=== PATIENT | male | born 1995 | race Two or more races ===

== ENCOUNTER 2017-08-24 10:38 | Outpatient (CLI) | payer OTHER | END 2017-08-24 10:51 | disposition home or self-care (01) | LOC: RAD 10:38 | DX: R07.0 Pain in throat (principal); J30.9 Allergic rhinitis, unspecified; E66.8 Other obesity; Z13.220 Encounter for screening for lipoid disorders; Z11.3 Encounter for screening for infections with a predominantly sexual mode of transmission; J03.80 Acute tonsillitis due to other specified organisms ==

== ENCOUNTER 2017-10-01 13:58 | Outpatient (CLI) | payer OTHER | END 2017-10-01 14:00 | disposition home or self-care (01) | LOC: RAD 13:58 | DX: M25.572 Pain in left ankle and joints of left foot (principal); J32.8 Other chronic sinusitis; R07.0 Pain in throat ==

== ENCOUNTER 2023-05-24 17:22 | Emergency (ER) | payer OTHER ==
[~2023-05-24] VITALS: Ht 180.3 cm; Wt 118.8 kg
== END 2023-05-24 22:59 | disposition home or self-care (01) ==
LOC: ER 17:22
DX: J06.9 Acute upper respiratory infection, unspecified (principal); Z20.822 Contact with and (suspected) exposure to COVID-19

== ENCOUNTER 2024-01-28 14:19 | Emergency (ER) | payer OTHER ==
[~2024-01-28] VITALS: Ht 177.8 cm; Wt 117.9 kg
[2024-01-28] MEDS ORDERED: BUTALB/ACETAMINOPHEN/CAFFEINE 1 TAB TABLET PO ONE (16:00)
[2024-01-28 17:01] LABS: HEMATOCRIT 40.9 % (39.0-48.0); HEMOGLOBIN 13.9 g/dL (13-16.00); MEAN CELL VOLUME 86.4 fL (80.0-100.00); MEAN CORPUSCULAR HEMOGLOBIN 29.4 pg (27.00-32.0); MEAN CORPUSCULAR HGB CONC 34.1 g/dl (32.0-36.0); PLATELET COUNT 273 K/uL (150-450); RED BLOOD COUNT 4.73 M/uL (4.00-6.00); RED CELL DISTRIBUTION WIDTH 13.7 % (11.5-14.5)
[2024-01-28] MEDS ORDERED: BUTALBIT-ACETA1 EACH PO (19:26)
== END 2024-01-28 20:45 | disposition home or self-care (01) ==
LOC: ER 14:22
PROVIDERS: General Practice
DX: R51.9 Headache, unspecified (principal); R05.9 Cough, unspecified; Z20.822 Contact with and (suspected) exposure to COVID-19

== ENCOUNTER 2024-07-27 11:12 | Emergency (ER) | payer OTHER ==
[~2024-07-27] VITALS: Ht 180.3 cm; Wt 122.5 kg
[~2024-07-27 11:12] MED LIST: BUTALBIT-ACETA1 EACH PO
[2024-07-27] MEDS ORDERED: GUAIFENESIN 200 MG/10 ML BLIST.PACK PO ONE ×2 (11:45→11:55)
[2024-07-27] MEDS ORDERED: ACETAMINOPHEN 500 MG GEL..CAP PO ONE ×2 (11:45→11:55)
[2024-07-27 12:15] LABS: BASO % 0.3 % (0.1-1.2); EOS # 0.14 (0.04-0.54); EOS % 1.5 % (0.7-7.0); HEMATOCRIT 42.3 % (40.1-51.0); HEMOGLOBIN 14.1 g/dL (13.7-17.5); LYMPH # 0.64 (1.18-3.74); MEAN CORPUSCULAR HEMOGLOBIN 28.8 pg (25.6-32.2); MONO # 0.59 (0.24-0.82); MONO % 6.5 % (4.7-12.5); NEUT # 7.66 (1.56-6.13); NEUT % 84.5 % (34.0-71.1); PLATELET COUNT 300 K/uL (163-369); RED CELL DISTRIBUTION WIDTH 13.1 % (11.6-14.4)
[2024-07-27 13:15] LABS: INFLUENZA A AG NEGATIVE (NEGATIVE); INFLUENZA B AG NEGATIVE (NEGATIVE)
[2024-07-27 13:30] LABS: COVID-19 AG NEGATIVE (NEGATIVE)
== END 2024-07-27 13:58 | disposition home or self-care (01) ==
LOC: ER 11:20
PROVIDERS: General Practice
DX: B34.9 Viral infection, unspecified (principal); R05.8 Other specified cough; Z20.822 Contact with and (suspected) exposure to COVID-19

== ENCOUNTER → 2025-01-20 | Emergency (ER) | payer OTHER ==
[~2025-01-20] VITALS: Ht 182.9 cm; Wt 122.5 kg
[~2025-01-20] MED LIST changes: +IBUPROFEN800 MG PO; +KETOROLAC TROMETHAMINE 30 MG VIAL IM ONE; +KETOROLAC TROMETHAMINE 30 MG VIAL ONE
== END | disposition home or self-care (01) ==
LOC: ER 19:52
DX: S99.812A Other specified injuries of left ankle, initial encounter (principal); X50.9XXA Other and unspecified overexertion or strenuous movements or postures, initial encounter; Y93.89 Activity, other specified; Y92.89 Other specified places as the place of occurrence of the external cause